=== PATIENT | female | born 1945 | race Caucasian/White ===

== ENCOUNTER 2019-11-19 12:10 | Inpatient (IN) | payer MEDICARE, OTHER ==
[~2019-11-19] VITALS: Ht 152.4 cm; Wt 59.0 kg
--- NOTE | 2019-11-19 12:40 | NUR ---
Dr Verduzco at the bedside forr DAVID.
[2019-11-19 13:16] LABS: BASOPHILS # (AUTO) 0.1 K/uL (0.0-8.0); EOSINOPHILS # (AUTO) 0.1 K/uL (0.0-0.7); EOSINOPHILS % (AUTO) 1.2 % (0.0-7.0); HEMATOCRIT 48.1 % (31.2-41.9); MEAN CORPUSCULAR HEMOGLOBIN 27.6 uug (24.7-32.8); MONOCYTES # (AUTO) 0.6 K/uL (2.0-10.0); WHITE BLOOD COUNT (AUTO) 10.6 K/uL (3.8-11.8)
[2019-11-19 13:23] LABS: CREATININE 0.7 mg/dL (0.6-1.3); POTASSIUM 4.6 mmol/L (3.5-5.1)
[2019-11-19 13:24] LABS: BASOPHILS % (AUTO) 0.8 % (0.0-2.0); HEMOGLOBIN 16.2 g/dL (10.9-14.3); LYMPHOCYTES # (AUTO) 2.4 K/uL (20.0-40.0); LYMPHOCYTES % (AUTO) 22.3 % (20.5-51.5); MEAN CORPUSCULAR HGB CONC 34 g/dL (32.3-35.6); MONOCYTES % (AUTO) 5.7 % (0.0-11.0); NEUTROPHILS # (AUTO) 7.4 K/uL (1.8-8.9); PLATELET COUNT (AUTO) 253 K/uL (179-408); RED BLOOD CELL COUNT(AUTO) 5.86 MIL/uL (3.63-4.92)
[2019-11-19 13:28] LABS: BILIRUBIN,DIRECT 0.1 mg/dL (0.0-0.2); BILIRUBIN,TOTAL 0.5 mg/dL (0.2-1.0); TOTAL PROTEIN, SERUM 8.8 g/dL (6.4-8.2)
[2019-11-19 13:59] LABS: BAND % (MANUAL) 5 % (0-10); BASOPHILS % (MANUAL) 1 % (0-2); LYMPHOCYTES % (MANUAL) 25 % (20-40); METAMYELOCYTES % 2 % (0-1); MONOCYTES % (MANUAL) 6 % (2-10); NEUTROPHILS % (MANUAL) 61 % (42-75)
--- NOTE | 2019-11-19 14:55 | NUR ---
RECEIVED PATIENT 74 YEARS OLD FEMALE BY PABLITO TO ROOM 308 PLACED INTO BED FIXED AND MADE COMFORTABLE PATIENT IS AWAKE NON VERBAL UNABLE TO MAKE NEEDS KNOWN LEFT ARM IS CONTRACTED WITH MULTIPLE RED AREAS ON NECK ETC GT ON LEFT ABDOMINAL AREA CALL PLACED TO THE NEPHROLOGY GROUP MESSAGE LEFT WITH BRIE STATED THAT DR CAIN IS CLERK ANALYST AND WILL BE CALLING ME BACK FOR ORDERS.
[2019-11-19] MEDS ORDERED: DEXTROSE 50% 50 ML DISP.SYRIN IV PRN (16:00)
[2019-11-19 16:12] VITALS: BP 157/67
[2019-11-19] MEDS: BLOOD SUGAR DIAGNOSTIC 1 EACH STRIP VI SCH ×2 (17:09→23:15)
[2019-11-19] MEDS: IV D5/ 0.9% NACL 1,000 ML IV PRN (17:40)
--- NOTE | 2019-11-19 18:00 | NUR ---
SPOKE WITH DR SANCHEZ AND ORDERS VERIFIED.
--- NOTE | 2019-11-19 18:29 | NUR ---
VERY CONTRACTED LEFT VERY STIFF AND PULLING AWAY AND RESISTING CARE TURNED AND REPOSITINED MADE COMFORTABLE
--- NOTE | 2019-11-19 19:35 | NUR ---
PATIENT ALERT BUT NON VERBAL, NO S/S OF SOB NO S/S OF CHEST PAIN. KEPT CLEAN AND DRY, TX DONE ON MULTIPLE REDNESS OR RASHES, CONT TO MONITOR.
[2019-11-19] MEDS: SIMVASTATIN 20 MG TABLET PO SCH (20:00)
[2019-11-19] MEDS: INSULIN GLARGINE,HUM 300 UNITS/3 ML CARTRIDGE SQ SCH (20:51)
[2019-11-19] MEDS: CLOTRIMAZOLE 1% CREAM 30 GM TUBE TOP SCH (21:00)
[2019-11-19] MEDS: Z GUARD REMEDY PASTE 57 GM TUBE TOP SCH (21:01)
[2019-11-19] MEDS: INSULIN REGULAR, HUMAN 300 UNIT/3 ML VIAL SQ PRN (23:18)
[2019-11-20] MEDS: BLOOD SUGAR DIAGNOSTIC 1 EACH STRIP VI SCH ×4 (05:33→21:37)
[2019-11-20] MEDS: LEVOTHYROXINE SODIUM 50 MCG TABLET PO SCH (06:04)
--- NOTE | 2019-11-20 06:36 | NUR ---
PATIENT ALERT BUT WITH CONFUSION DUE TO HEALTH CONDITION. PATIENT REMAINS NPO EXCEPT WITH MEDICATIONS. PATIENT HAS NO S/S OF HYPO/HYPERGLYCEMIA NOTED AT THIS TIME. KEPT CLEAN DRY AND COMFORTABLE, TX DONE ON MULTIPLE RASHES/REDNESS, TOLERATE WELL. CONT TO MONITOR.
[2019-11-20] MEDS: IV D5/ 0.9% NACL 1,000 ML IV PRN ×2 (06:48→11:46)
[2019-11-20 07:01] LABS: BASOPHILS # (AUTO) 0.1 K/uL (0.0-8.0); BASOPHILS % (AUTO) 0.8 % (0.0-2.0); EOSINOPHILS # (AUTO) 0.2 K/uL (0.0-0.7); LYMPHOCYTES # (AUTO) 1.5 K/uL (20.0-40.0); LYMPHOCYTES % (AUTO) 19.1 % (20.5-51.5); MEAN CORPUSCULAR HEMOGLOBIN 27.1 uug (24.7-32.8); MEAN CORPUSCULAR HGB CONC 33 g/dL (32.3-35.6); MEAN CORPUSCULAR VOLUME 81.3 fL (75.5-95.3); MONOCYTES # (AUTO) 0.5 K/uL (2.0-10.0); MONOCYTES % (AUTO) 5.8 % (0.0-11.0); NEUTROPHILS # (AUTO) 5.6 K/uL (1.8-8.9); NEUTROPHILS % (AUTO) 72.3 % (38.5-71.5); PLATELET COUNT (AUTO) 221 K/uL (179-408); RED BLOOD CELL COUNT(AUTO) 4.91 MIL/uL (3.63-4.92)
[2019-11-20 07:10] LABS: HEMOGLOBIN 13.3 g/dL (10.9-14.3); WHITE BLOOD COUNT (AUTO) 7.8 K/uL (3.8-11.8)
--- NOTE | 2019-11-20 07:15 | NUR ---
AWAKE OPENS EYES APHASIC TOTALLY DEPENDENT FOR ALL ADL ALL NEEDS ANTICIPATED AND SATISFIED TURNED AND REPOSITIONED FOR COMFORT ON ROOM AIR WITH NO SOB AT THIS TIME REMAIN ON NPO EXCEPT MEDS GT INTACT NOT IN USE AT THIS TIME LEFT UPPER EXT CONTRACTED AND STIFF HEELS FLOATED IVF IN PROGRESS ORDERED MADE COMFORTABLE WILL CONTINUE TO OBSERVE.
[2019-11-20 07:22] LABS: ALKALINE PHOSPHATASE 46 U/L (50-136); ASPARTATE AMINOTRANSFERASE 14 U/L (15-37); BILIRUBIN,DIRECT 0.1 mg/dL (0.0-0.2); BILIRUBIN,TOTAL 0.5 mg/dL (0.2-1.0); CARBON DIOXIDE 27 mmol/L (21-32); CHLORIDE 107 mmol/L (98-107); CREATININE 0.6 mg/dL (0.6-1.3); GLUCOSE 144 mg/dL (74-106); POTASSIUM 3.6 mmol/L (3.5-5.1); TOTAL PROTEIN, SERUM 6.8 g/dL (6.4-8.2); UREA NITROGEN, BLOOD 9 mg/dL (7-18)
[2019-11-20 07:32] LABS: ALANINE AMINOTRANSFERASE 7 U/L (14-59)
[2019-11-20] MEDS: MULTIVITAMINS,THERAPEUTIC TABLET PO SCH (08:14)
[2019-11-20] MEDS: ASCORBIC ACID 250 MG TABLET PO SCH ×2 (08:14→16:40)
[2019-11-20] MEDS: MEMANTINE HCL 5 MG TABLET PO SCH ×2 (08:14→16:40)
[2019-11-20] MEDS: LISINOPRIL 20 MG TABLET PO SCH (08:17)
[2019-11-20] MEDS: AMLODIPINE 5 MG TABLET PO SCH (08:17)
[2019-11-20] MEDS: OXCARBAZEPINE 150 MG TABLET PO SCH (08:20)
[2019-11-20] MEDS: Z GUARD REMEDY PASTE 57 GM TUBE TOP SCH ×2 (08:21→21:44)
[2019-11-20] MEDS: CLOTRIMAZOLE 1% CREAM 30 GM TUBE TOP SCH ×2 (08:21→21:44)
--- NOTE | 2019-11-20 10:30 | NUR ---
DR ACOSTA HERE TO SEE PATIENT STATED WILL CALL GI TO SEE PATIENT.
--- NOTE | 2019-11-20 11:13 | NUR ---
CALL RECEIVED FROM DR CHOI BUT DR ACOSTA IS STILL HERE SO THEY BOTH TALKED AND DR ACOSTA TOLD ME THAT DR CHOI WILL DE HERE TODAY TO SEE PATIENT FOR GI CONSULT.
[2019-11-20 11:30] VITALS: BP 140/69
[2019-11-20] MEDS: INSULIN REGULAR, HUMAN 300 UNIT/3 ML VIAL SQ PRN ×3 (11:31→21:39)
--- NOTE | 2019-11-20 12:30 | NUR ---
DR RICKETTS HERE AND STATED TO WAIT TO FEED PATIENT AND IF PATIENT TOLERATES THE ORAL FEEDINGS WITH ENOUGH INTAKE THEN DR CHOI CAN REMOVE THE GT
--- NOTE | 2019-11-20 12:50 | NUR ---
DR CHOI HERE AND STATED THAT HE WILL REMOVE THE GT SO I TOLD HIM THAT DR RICKETTS WANTED TO WAIT UNTIL PATIENT HAS ENOUGH ORAL INTAKE BEFORE REMOVING THE TUBE SO DR CHOI STATED THAT WE SHOULD THEN REMOVE THE TUBE BY DEFLATING THE BALLOON AND PULLING OUT THE GT AND APPLY DRY DRESSING.
[2019-11-20 15:41] VITALS: BP 124/69
[2019-11-20] MEDS ORDERED: DEXTROSE 50% 50 ML DISP.SYRIN IV PRN (16:45)
--- NOTE | 2019-11-20 16:50 | NUR ---
NOTED PATIENT WITH EMESIS ON HER GOWN AND BED CONSISTING OF PARTLY UNDIGESTED FOOD PARTICLES CLEANSED AND MADE COMFORTABLE PATIENT HAS NO ORDER FOR ANTIEMETIC WILL CALL THE DOCTOR.
--- NOTE | 2019-11-20 17:00 | NUR ---
PATIENT HAS NO ORDER FOR ANTIEMETIC CALLED THE NEPHROLOGY GROUP SPOKE WITH JAMIE STATED DR CAIN IS FISH CUTTER AND SHE WILL SEND HIM A MESSAGE.
[2019-11-20] MEDS ORDERED: ONDANSETRON 4 MG/2 ML VIAL IV PRN (17:45)
--- NOTE | 2019-11-20 17:47 | NUR ---
FOLLOW UP CALL TO DR CAIN RE EMESIS AND GT REMOVAL PER DR CHOI STATED IT WAS OKAY TO REMOVE THE GT DESPITE THE EMESIS AND TO ORDER ZOFRA NEEDED AND NOTED.
--- NOTE | 2019-11-20 17:55 | NUR ---
PATIENT MEDICATED WITH ZOFRAN ORDERED
--- NOTE | 2019-11-20 17:56 | NUR ---
SPECIALTY MATTRASS APPLIED TO HER BED ORDERED FOR COMFORT AND DECUBITUS MANAGEMENT ORDERED.
--- NOTE | 2019-11-20 18:47 | NUR ---
RESTING NO FUTHER EMESIS AT THIS TIME ATTEMPTED TO REMOVE GT BUT WAS UNABLE TO ASPIRATE WATER FROM THE BALLOON PORT GT DIFFICULT TO PULL OUT WILL ENDORSE TO NOTIFY DR CHOI AND DR CAIN IN AM.
--- NOTE | 2019-11-20 19:00 | NUR ---
PATIENT ALERT BUT WITH CONFUSION, NO SOB NO CHEST PAIN. PATIENT HAS NO S/S OF PAIN NOR DISCOMFORT, KEPT CLEAN AND DRY.CONT TO MONITOR.
[2019-11-20 20:07] VITALS: BP 111/48
[2019-11-20] MEDS: SIMVASTATIN 20 MG TABLET PO SCH (21:23)
[2019-11-20] MEDS: INSULIN GLARGINE,HUM 300 UNITS/3 ML CARTRIDGE SQ SCH (21:38)
--- NOTE | 2019-11-20 21:59 | NUR ---
KRYS HERNANDEZ WAS ON THE PHONE AND NOTIFY MD THAT PATIENT STILL HAS THE GT. NOTIFY MD THAT AM RN DEPLATED THE WATER BALLOON AND TRIED TO REMOVE THE GT, BUT GT WONT CAME OUT, SO PATIENT STILL HAS GT.
[2019-11-21] MEDS: IV D5/ 0.9% NACL 1,000 ML IV PRN (02:38)
[2019-11-21] MEDS: BLOOD SUGAR DIAGNOSTIC 1 EACH STRIP VI SCH ×4 (05:36→21:02)
[2019-11-21] MEDS: LEVOTHYROXINE SODIUM 50 MCG TABLET PO SCH (06:02)
[2019-11-21 06:14] VITALS: BP 102/55
--- NOTE | 2019-11-21 06:35 | NUR ---
PATIENT ALERT BUT WITH CONFUSION, NO SOB NO CHEST PAIN. PATIENT HAS NO S/S OF PAIN AT THIS TIME. TX CONTINUE ON MULTIPLE AREAS OF RASHES, GT STILL PRESENT. PATIENT HAS NO S/S OF ABDOMINAL PAIN AT THIS TIME. CONT TO MONITOR.
[2019-11-21] MEDS: AMLODIPINE 5 MG TABLET PO SCH (09:07)
[2019-11-21] MEDS: LISINOPRIL 20 MG TABLET PO SCH (09:07)
[2019-11-21] MEDS: MEMANTINE HCL 5 MG TABLET PO SCH ×2 (09:08→17:31)
[2019-11-21] MEDS: ASCORBIC ACID 250 MG TABLET PO SCH ×2 (09:08→17:31)
[2019-11-21] MEDS: INSULIN REGULAR, HUMAN 300 UNIT/3 ML VIAL SQ PRN ×4 (09:08→21:09)
[2019-11-21] MEDS: MULTIVITAMINS,THERAPEUTIC TABLET PO SCH (09:08)
[2019-11-21] MEDS: Z GUARD REMEDY PASTE 57 GM TUBE TOP SCH ×2 (09:09→21:05)
[2019-11-21] MEDS: OXCARBAZEPINE 150 MG TABLET PO SCH (09:09)
[2019-11-21] MEDS: CLOTRIMAZOLE 1% CREAM 30 GM TUBE TOP SCH ×2 (09:10→21:05)
[2019-11-21 11:07] VITALS: BP 132/68
[2019-11-21 15:08] VITALS: BP 160/86
--- NOTE | 2019-11-21 18:44 | NUR ---
PATIENT ALERT AND COOPERATIVE WITH NO SOB, NO S/S OF PAIN AT THIS TIME. GTUBE STILL PRESENT. PATIENT HAS NO S/S OF ABDOMINAL PAIN AT THIS TIME. PATIENT WILL BE NPO AFTER MIDNIGHT AND GTUBE REMOVAL IS SCHEDULE FOR TOMORROW, CONSENT SIGNED.
--- NOTE | 2019-11-21 20:00 | NUR ---
Patient received into care, laying in bed sleeping, resting comfortably. Patient is alert/oriented x1 and has no signs/symptoms of acute distress or discomfort noted/observed by nurse. Safety, fall, and aspiration precautions are in place. Call light and personal items are within reach. Will continue to monitor and assess.
[2019-11-21 20:41] VITALS: BP 112/64
[2019-11-21] MEDS: SIMVASTATIN 20 MG TABLET PO SCH (21:04)
[2019-11-21] MEDS: INSULIN GLARGINE,HUM 300 UNITS/3 ML CARTRIDGE SQ SCH (21:10)
[2019-11-22] MEDS: IV D5/ 0.9% NACL 1,000 ML IV PRN (04:09)
--- NOTE | 2019-11-22 06:00 | NUR ---
Patient slept comfortably intermittently throughout night with no signs/symptoms of pain or acute distress noted/observed by nurse. All prescribed medications were provided as ordered and tolerated well, with no adverse side effects noted/observed by nurse. All patient needs were addressed promptly and patient is warm, dry, and comfortable. Patient has remained NPO since 12mn due to pending scheduled surgery to remove gastrostomy tube. Safety, aspiration, and fall precaution measures remain in place. Personal items and call light remain within reach.
[2019-11-22] MEDS: LEVOTHYROXINE SODIUM 50 MCG TABLET PO SCH (06:07)
[2019-11-22] MEDS: BLOOD SUGAR DIAGNOSTIC 1 EACH STRIP VI SCH ×3 (06:33→17:54)
[2019-11-22 06:48] VITALS: BP 161/63
[2019-11-22 06:55] LABS: BASOPHILS # (AUTO) 0.1 K/uL (0.0-8.0); BASOPHILS % (AUTO) 0.7 % (0.0-2.0); EOSINOPHILS # (AUTO) 0.2 K/uL (0.0-0.7); HEMATOCRIT 39.8 % (31.2-41.9); HEMOGLOBIN 13.4 g/dL (10.9-14.3); LYMPHOCYTES # (AUTO) 1.6 K/uL (20.0-40.0); LYMPHOCYTES % (AUTO) 18.6 % (20.5-51.5); MEAN CORPUSCULAR HEMOGLOBIN 27.4 uug (24.7-32.8); MEAN CORPUSCULAR HGB CONC 34 g/dL (32.3-35.6); MEAN CORPUSCULAR VOLUME 81.4 fL (75.5-95.3); MONOCYTES # (AUTO) 0.6 K/uL (2.0-10.0); MONOCYTES % (AUTO) 6.4 % (0.0-11.0); NEUTROPHILS # (AUTO) 6.3 K/uL (1.8-8.9); NEUTROPHILS % (AUTO) 72.3 % (38.5-71.5); PLATELET COUNT (AUTO) 195 K/uL (179-408); RED BLOOD CELL COUNT(AUTO) 4.89 MIL/uL (3.63-4.92); WHITE BLOOD COUNT (AUTO) 8.7 K/uL (3.8-11.8)
[2019-11-22 07:16] LABS: CREATININE 0.6 mg/dL (0.6-1.3); MAGNESIUM 1.4 mg/dL (1.8-2.4); POTASSIUM 3.6 mmol/L (3.5-5.1)
[2019-11-22] MEDS ORDERED: FENTANYL CITRATE 100 MCG/2 ML AMPUL ONE (07:40)
[2019-11-22] MEDS: MEMANTINE HCL 5 MG TABLET PO SCH ×2 (08:49→17:55)
[2019-11-22] MEDS: OXCARBAZEPINE 150 MG TABLET PO SCH (08:50)
[2019-11-22] MEDS: ASCORBIC ACID 250 MG TABLET PO SCH ×2 (08:50→17:55)
[2019-11-22] MEDS: MULTIVITAMINS,THERAPEUTIC TABLET PO SCH (08:50)
[2019-11-22] MEDS: AMLODIPINE 5 MG TABLET PO SCH (08:51)
[2019-11-22] MEDS: LISINOPRIL 20 MG TABLET PO SCH (08:59)
[2019-11-22] MEDS: CLOTRIMAZOLE 1% CREAM 30 GM TUBE TOP SCH (09:00)
[2019-11-22] MEDS: Z GUARD REMEDY PASTE 57 GM TUBE TOP SCH (09:00)
--- NOTE | 2019-11-22 09:11 | NUR ---
Received pt. in bed on KRISHNA for skin mgt. Pt non-verbal but responsive to tactile stimuli. NPO since midnight per NSG report. RH PIV leaking and infiltrated, will D/C. Noted G-tube, currently not being used. No new skin condition with generalized rashes. Safety measures in place. Call light and all frequently used items in place. Will continue to monitor accordingly. Addendum: 11/22/19 at 0930 by ALEXANDER VELAZQUEZ RN Pt. left unit for schedule G-tube removal @ 0925 in stable condition. Addendum: 11/22/19 at 1431 by ALEXANDER VELAZQUEZ RN Pt returned to unit at around 1115 in stable condition. Remain non-verbal. New PIV started on RH 24G x2 attempts with good blood return, pt tolerated procedure well, previous IV site d/c 2/2 infiltration and leaking. Pt. s/p G-tube removal, site covered with 4x4 dressing with tegaderm. May resume all previous medications per Dr. Carroll. Hold oral feeding until peg closes. Addendum: 11/22/19 at 1444 by ALEXANDER VELAZQUEZ RN Correction of charting: IV site on RW
[2019-11-22 11:06] VITALS: BP 156/69
[2019-11-22] MEDS: MAGNESIUM SULFATE/D5W 100 ML IV SCH ×4 (11:58→15:33)
[2019-11-22] MEDS: INSULIN REGULAR, HUMAN 300 UNIT/3 ML VIAL SQ PRN ×2 (12:06→17:57)
[2019-11-22 15:04] VITALS: BP 158/65
--- NOTE | 2019-11-22 18:44 | NUR ---
EOS: EOS: All due medications given as ordered. Skin care rendered. Previous G-tube site covered with 4x4 gauze with tegarderm. Per Dr. Carroll hold all oral feeding until Peg closes (NPO). May resume all previous medication. Pt. received 4g of Mag sulfate for M.4, tolerated well. Dr. Lombardo deemed pt. stable for discharge back to [facility]. Per CM, pt accepted back to previous facility (Room 1025 Bed B) and with hospital transportation for medicinal plant picker @ 2029. Pt. skin re-assessed, photos taken and placed in pt. chart. Pt. unable to sign discharge papers, 2 RN signed d/c papers. Called [facility] [phone] [phone] and unable to reach staff. Kept pt. clean and dry. Safety measures in place. Call light and all frequently used items within pt. reach. Will endorse to oncoming shift accordingly. Addendum: 11/22/19 at 1914 by ALEXANDER VELAZQUEZ RN Spoke with Louis Villela (Son) [phone] informed of pt. planned discharge to [facility]. Family member amenable.
[2019-11-22 20:12] VITALS: BP 178/64
[2019-11-22] MEDS ORDERED: CEFAZOLIN 1 G VIAL IM ONE (20:58)
[2019-11-22] MEDS ORDERED: PROPOFOL 200 MG/20 ML BOTTLE IV ONE (20:58)
[2019-11-22] MEDS ORDERED: IV NORMAL SALINE 1000 ML BAG IV ONE (20:58)
[2019-11-22] MEDS ORDERED: IRR STERIL WATER FOR IRR 1000 ML BOTTLE IR ONE (20:58)
== END 2019-11-22 20:59 | DRG 393 ==
LOC: ER 12:10 → MEDSURG3 14:35
PROVIDERS: ADMIT Internal Medicine Nephrology; ATTEND Internal Medicine Nephrology
PROC: 0DP68UZ Removal of Feeding Device from Stomach, Via Natural or Artificial Opening Endoscopic (ICD-10-PCS; principal; 2019-11-22)
DX: Z43.1 Encounter for attention to gastrostomy (principal); G92 Toxic encephalopathy; R13.10 Dysphagia, unspecified; E03.9 Hypothyroidism, unspecified; E78.5 Hyperlipidemia, unspecified; Z79.890 Hormone replacement therapy; F03.90 Unspecified dementia, unspecified severity, without behavioral disturbance, psychotic disturbance, mood disturbance, and anxiety; Z79.4 Long term (current) use of insulin; E11.9 Type 2 diabetes mellitus without complications; I10 Essential (primary) hypertension; I25.10 Atherosclerotic heart disease of native coronary artery without angina pectoris; Z66 Do not resuscitate; F32.9 Major depressive disorder, single episode, unspecified; F41.9 Anxiety disorder, unspecified
CPT/HCPCS: 36415; 70030-TC; 83690; 83735; 84100; 85025; 93005; A4217; A4663; G0378; J0690; J1815; J2405; J3010; J3475; J3490; J7030; J7042

== ENCOUNTER 2020-11-14 13:27 | Inpatient (IN) | payer MEDICARE, OTHER ==
[~2020-11-14] VITALS: Ht 152.4 cm; Wt 59.0 kg
[~2020-11-14 13:27] MED LIST: AMLO5TAB4 PO; ASCO-495 PO; INSU100V7 SQ; LEVO50TA8 PO; LISI20TA30 PO; MEMA5TAB PO; MULT-594 PO; OXCA150T5 PO; SIMV20TA2 PO
[2020-11-14] MEDS ORDERED: IV D5/ 0.9% NACL 1,000 ML IV ONE (14:00)
[2020-11-14 14:46] LABS: BASOPHILS % (AUTO) 0.4 % (0.0-2.0); EOSINOPHILS # (AUTO) 0.1 K/uL (0.0-0.7); EOSINOPHILS % (AUTO) 1.3 % (0.0-7.0); HEMOGLOBIN 12.5 g/dL (10.9-14.3); LYMPHOCYTES # (AUTO) 2.5 K/uL (20.0-40.0); LYMPHOCYTES % (AUTO) 23.4 % (20.5-51.5); MEAN CORPUSCULAR HEMOGLOBIN 27.2 uug (24.7-32.8); MEAN CORPUSCULAR HGB CONC 31 g/dL (32.3-35.6); MEAN CORPUSCULAR VOLUME 87.6 fL (75.5-95.3); MONOCYTES # (AUTO) 0.6 K/uL (2.0-10.0); MONOCYTES % (AUTO) 5.2 % (0.0-11.0); NEUTROPHILS # (AUTO) 7.5 K/uL (1.8-8.9); NEUTROPHILS % (AUTO) 69.7 % (38.5-71.5); PLATELET COUNT (AUTO) 122 K/uL (179-408); RED BLOOD CELL COUNT(AUTO) 4.57 MIL/uL (3.63-4.92); WHITE BLOOD COUNT (AUTO) 10.7 K/uL (3.8-11.8)
[2020-11-14 14:56] LABS: *BILIRUBIN,URIN 1+ (NEGATIVE); *BLOOD, URINE 3+ (NEGATIVE); *CLARITY,URINE SLIGHTLY CLOUDY (CLEAR); *COLOR,URINE YELLOW (YELLOW); *KETONES,URINE NEGATIVE (NEGATIVE); LEUKOCYTE ESTERASE ,URINE 1+ (NEGATIVE); NITRITE, URINE NEGATIVE (NEGATIVE); UGLUCOSE NEGATIVE (NEGATIVE)
[2020-11-14 15:00] LABS: BACTERIA,URINE NONE SEEN /HPF (NONE SEEN)
[2020-11-14 15:04] LABS: BILIRUBIN,TOTAL 0.3 mg/dL (0.2-1.0); CREATININE 1.2 mg/dL (0.6-1.3); POTASSIUM 4.4 mmol/L (3.5-5.1); TOTAL PROTEIN, SERUM 5.8 g/dL (6.4-8.2)
[2020-11-14] MEDS ORDERED: NOVOLOG INSULIN SQ (15:28)
[2020-11-14] MEDS ORDERED: ACET325C7 PO (15:28)
[2020-11-14] MEDS ORDERED: BISA10SU61 RC (15:28)
[2020-11-14] MEDS ORDERED: METF-442 PO (15:28)
[2020-11-14] MEDS ORDERED: SENN-261 PO (15:28)
[2020-11-14] MEDS ORDERED: IV D5W 1000ML 1,000 ML IV ONE (15:30)
--- NOTE | 2020-11-14 15:43 | NUR ---
Dr. Franz talked to Dr. Balderrama for admitting the pt.
[2020-11-14] MEDS ORDERED: PIPERACILLIN SODIUM/TAZOBACTAM 3.375 G in IV DEXTROSE 5% 50 ML IV ONE (15:45)
[2020-11-14] MEDS ORDERED: PIPERACILLIN/TAZOBACTAM/D5W 50 ML IV ONE (15:50)
--- NOTE | 2020-11-14 17:38 | NUR ---
PT TRANSFERED TO FLOOR IN STABLE CONDITION. PT REMAINED CALM, WITH NO SIGN OF DISTRESS THE WHOLE ER STAY.
[2020-11-14] MEDS ORDERED: HYDROCODONE/APAP 5-325MG TABLET PO PRN (18:45)
[2020-11-14] MEDS ORDERED: ONDANSETRON 4 MG/2 ML VIAL IV PRN (18:45)
[2020-11-14] MEDS ORDERED: ACETAMINOPHEN 325 MG TABLET PO PRN (18:45)
[2020-11-14] MEDS ORDERED: Z GUARD REMEDY PASTE 57 GM TUBE TOP PRN (18:45)
[2020-11-14] MEDS ORDERED: MAGNESIUM HYDROXIDE 30 ML LIQUID UDC PO PRN (18:45)
[2020-11-14] MEDS: ENOXAPARIN SODIUM 40 MG/0.4 ML DISP.SYRIN SQ SCH (20:37)
[2020-11-14] MEDS: IV D5W 1000ML 1,000 ML IV PRN (20:37)
[2020-11-14 20:39] VITALS: BP 109/55
[2020-11-14] MEDS: SIMVASTATIN 10 MG TABLET PO SCH (20:40)
--- NOTE | 2020-11-14 20:42 | NUR ---
CUSTOM HARVESTER Ke informed about IVF x1 d5W; ordered to change to D5Wat 125/hr continuously; pt failed bedside swallow test hence PO meds unable to take.
[2020-11-14] MEDS ORDERED: METFORMIN HCL 500 MG TABLET PO SCH (21:00)
[2020-11-14] MEDS ORDERED: DEXTROSE 50% 50 ML DISP.SYRIN IV PRN (23:15)
[2020-11-15] MEDS ORDERED: VANCOMYCIN IV 1,000 MG in IV DEXTROSE 5% 250 ML IV ONE (00:30)
[2020-11-15] MEDS: INSULIN REGULAR, HUMAN 300 UNIT/3 ML VIAL SQ PRN ×4 (00:40→17:39)
[2020-11-15] MEDS: BLOOD SUGAR DIAGNOSTIC 1 EACH STRIP VI SCH ×5 (00:41→23:12)
[2020-11-15] MEDS ORDERED: PIPERACILLIN SODIUM/TAZOBACTAM 3.375 G in IV DEXTROSE 5% 50 ML IV ONE (00:45)
[2020-11-15] MEDS ORDERED: VANCOMYCIN IV 200 ML ONE (00:55)
[2020-11-15] MEDS ORDERED: PIPERACILLIN/TAZOBACTAM/D5W 50 ML IV ONE (00:55)
[2020-11-15 04:00] VITALS: BP 121/68
--- NOTE | 2020-11-15 06:33 | NUR ---
pt rested well in between care; repositioned q2h; safety maintained; antibiotics given per Dr Balderrama; oral care done;
[2020-11-15 07:23] LABS: MAGNESIUM 1.5 mg/dL (1.8-2.4); PHOSPHOROUS 2.9 mg/dL (2.5-4.9)
--- NOTE | 2020-11-15 08:00 | NUR ---
Received in bed sleep but arousable to verbal and tactile stimuli. No facial grimacing noted. Iv on left wrist intact and patent. On 3Lpm via nc tolerated, saturation 96%. No sob noted. Kept comfortable. Will continue to monitor.
[2020-11-15 08:13] LABS: BASOPHILS # (AUTO) 0.1 K/uL (0.0-8.0); EOSINOPHILS # (AUTO) 0.2 K/uL (0.0-0.7); EOSINOPHILS % (AUTO) 2.6 % (0.0-7.0); HEMATOCRIT 40.3 % (31.2-41.9); LYMPHOCYTES # (AUTO) 2.3 K/uL (20.0-40.0); LYMPHOCYTES % (AUTO) 27.9 % (20.5-51.5); MEAN CORPUSCULAR HEMOGLOBIN 27.7 uug (24.7-32.8); MEAN CORPUSCULAR HGB CONC 32 g/dL (32.3-35.6); MEAN CORPUSCULAR VOLUME 85.9 fL (75.5-95.3); MONOCYTES # (AUTO) 0.4 K/uL (2.0-10.0); MONOCYTES % (AUTO) 4.3 % (0.0-11.0); NEUTROPHILS # (AUTO) 5.3 K/uL (1.8-8.9); NEUTROPHILS % (AUTO) 64.2 % (38.5-71.5); PLATELET COUNT (AUTO) 100 K/uL (179-408); RED BLOOD CELL COUNT(AUTO) 4.69 MIL/uL (3.63-4.92); WHITE BLOOD COUNT (AUTO) 8.2 K/uL (3.8-11.8)
[2020-11-15 08:15] VITALS: BP 124/48
[2020-11-15] MEDS: PIPERACILLIN SODIUM/TAZOBACTAM 3.375 G in IV DEXTROSE 5% 50 ML IV SCH ×4 (08:17→23:11)
[2020-11-15] MEDS: IV D5W 1000ML 1,000 ML IV PRN ×2 (08:18→19:41)
[2020-11-15] MEDS ORDERED: LISINOPRIL 20 MG TABLET PO SCH (09:00)
[2020-11-15] MEDS: LEVOTHYROXINE SODIUM 50 MCG TABLET PO SCH (09:00)
[2020-11-15] MEDS: AMLODIPINE 5 MG TABLET PO SCH (09:00)
[2020-11-15] MEDS: MEMANTINE HCL 5 MG TABLET PO SCH ×2 (09:00→17:00)
[2020-11-15] MEDS: MAGNESIUM SULFATE/D5W 100 ML IV SCH ×2 (10:45→12:16)
--- NOTE | 2020-11-15 15:00 | NUR ---
Dr.Ghalomi AWAD said he's able to do egd with peg tube insertion on Tuesday 12no. Spoke to patient's son Louis Villela and obtained phone consent verified by 2 RNs. Son was appreciative of the update. Patient also made aware. Will continue to monitor.
[2020-11-15 16:05] VITALS: BP 132/96
--- NOTE | 2020-11-15 19:27 | NUR ---
Patient awake but non verbal. No respiratory distress noted. Needs attended. No acute distress.
[2020-11-15] MEDS: VANCOMYCIN IV 1,000 MG in IV DEXTROSE 5% 250 ML IV SCH (19:43)
[2020-11-15] MEDS: SIMVASTATIN 10 MG TABLET PO SCH (20:54)
[2020-11-15 20:57] VITALS: BP 142/65
[2020-11-15] MEDS: ENOXAPARIN SODIUM 40 MG/0.4 ML DISP.SYRIN SQ SCH (21:02)
[2020-11-16 00:24] VITALS: BP 139/58
[2020-11-16 04:32] VITALS: BP 122/57
[2020-11-16] MEDS: PIPERACILLIN SODIUM/TAZOBACTAM 3.375 G in IV DEXTROSE 5% 50 ML IV SCH ×3 (06:01→18:16)
[2020-11-16] MEDS: BLOOD SUGAR DIAGNOSTIC 1 EACH STRIP VI SCH ×3 (06:04→18:16)
[2020-11-16] MEDS: IV D5W 1000ML 1,000 ML IV PRN (06:04)
[2020-11-16] MEDS: INSULIN REGULAR, HUMAN 300 UNIT/3 ML VIAL SQ PRN ×3 (06:08→18:20)
--- NOTE | 2020-11-16 06:29 | NUR ---
Pt rested well in between care; pt pulled out his iv last night; new IV to left hand; safety maintained; able to take meds; continue to monitor; continue plan of care.
[2020-11-16 07:17] LABS: CREATININE 0.9 mg/dL (0.6-1.3); MAGNESIUM 1.8 mg/dL (1.8-2.4); POTASSIUM 3.1 mmol/L (3.5-5.1)
[2020-11-16 08:00] VITALS: BP 139/96
--- NOTE | 2020-11-16 08:01 | NUR ---
Received awake but non verbal. On 2 Lpm via nc O2 saturation 96%. No resp distress noted. IV on left hand intact and patent, Iv fluids tolerated. Kept comfortable. Call light within reach. Will continue to monitor.
[2020-11-16] MEDS: LEVOTHYROXINE SODIUM 50 MCG TABLET PO SCH (09:00)
[2020-11-16] MEDS: AMLODIPINE 5 MG TABLET PO SCH (09:00)
[2020-11-16] MEDS: MEMANTINE HCL 5 MG TABLET PO SCH ×2 (09:00→17:00)
[2020-11-16] MEDS: IV D5 1/2 NS 1000 ML 1,000 ML IV PRN (10:24)
[2020-11-16] MEDS: POTASSIUM CHLORIDE 50 ML IV SCH ×4 (10:39→14:55)
[2020-11-16] MEDS: VANCOMYCIN IV 1,000 MG in IV DEXTROSE 5% 250 ML IV SCH (16:11)
[2020-11-16 16:41] VITALS: BP 117/61
[2020-11-16] MEDS: SIMVASTATIN 10 MG TABLET PO SCH (20:53)
[2020-11-16] MEDS: ENOXAPARIN SODIUM 40 MG/0.4 ML DISP.SYRIN SQ SCH (21:19)
[2020-11-16 21:53] VITALS: BP 122/62
[2020-11-17 01:11] VITALS: BP 145/73
[2020-11-17] MEDS: PIPERACILLIN SODIUM/TAZOBACTAM 3.375 G in IV DEXTROSE 5% 50 ML IV SCH ×4 (01:11→18:30)
[2020-11-17] MEDS: BLOOD SUGAR DIAGNOSTIC 1 EACH STRIP VI SCH ×5 (01:12→23:16)
[2020-11-17] MEDS: IV D5 1/2 NS 1000 ML 1,000 ML IV PRN ×2 (01:12→11:05)
[2020-11-17] MEDS: INSULIN REGULAR, HUMAN 300 UNIT/3 ML VIAL SQ PRN ×4 (01:13→23:24)
[2020-11-17 06:13] VITALS: BP 142/72
--- NOTE | 2020-11-17 06:25 | NUR ---
Mrs Villela rested well in between care; no acute distress; repositioned q2h; incontinence care done; repositioned for comfort; safety maintained ; AM care done; blood sugar as charted with ISS;
[2020-11-17 07:27] LABS: BASOPHILS # (AUTO) 0.1 K/uL (0.0-8.0); EOSINOPHILS # (AUTO) 0.2 K/uL (0.0-0.7); EOSINOPHILS % (AUTO) 2.6 % (0.0-7.0); HEMATOCRIT 37.9 % (31.2-41.9); HEMOGLOBIN 12.8 g/dL (10.9-14.3); LYMPHOCYTES # (AUTO) 1.8 K/uL (20.0-40.0); LYMPHOCYTES % (AUTO) 25.6 % (20.5-51.5); MEAN CORPUSCULAR HEMOGLOBIN 28.3 uug (24.7-32.8); MEAN CORPUSCULAR HGB CONC 34 g/dL (32.3-35.6); MEAN CORPUSCULAR VOLUME 83.4 fL (75.5-95.3); MONOCYTES # (AUTO) 0.4 K/uL (2.0-10.0); NEUTROPHILS # (AUTO) 4.5 K/uL (1.8-8.9); NEUTROPHILS % (AUTO) 64.8 % (38.5-71.5); PLATELET COUNT (AUTO) 114 K/uL (179-408); RED BLOOD CELL COUNT(AUTO) 4.54 MIL/uL (3.63-4.92)
[2020-11-17 07:42] LABS: CREATININE 0.9 mg/dL (0.6-1.3); MAGNESIUM 1.6 mg/dL (1.8-2.4); PHOSPHOROUS 2.7 mg/dL (2.5-4.9); POTASSIUM 3.7 mmol/L (3.5-5.1)
--- NOTE | 2020-11-17 07:45 | NUR ---
Received pt in bed. In no acute distress, iv site intact and patent, on 2l NC sating well. Responds to name and tactile stimuli call light in reach and safety measures in place. will continue to monitor
[2020-11-17] MEDS: AMLODIPINE 5 MG TABLET PO SCH (08:01)
[2020-11-17] MEDS: MEMANTINE HCL 5 MG TABLET PO SCH ×2 (08:01→16:30)
[2020-11-17] MEDS: LEVOTHYROXINE SODIUM 50 MCG TABLET PO SCH (08:02)
[2020-11-17] MEDS: MAGNESIUM SULFATE/D5W 100 ML IV SCH ×2 (10:09→10:58)
[2020-11-17] MEDS ORDERED: FENTANYL CITRATE 100 MCG/2 ML AMPUL ONE (11:22)
--- NOTE | 2020-11-17 11:30 | NUR ---
Pt left for gtube placement
--- NOTE | 2020-11-17 12:44 | NUR ---
WOUND CARE CONSULT: PT OFF UNIT IN O.R. AT THIS TIME. RECOMMENDATIONS MADE FOR SKIN PROTECTION. DISCUSSED WITH NURSING STAFF. WILL SEE PT PT CONDITION PERMITS.
--- NOTE | 2020-11-17 13:25 | NUR ---
Pt returned from procedure with gtube in place and will flush and give meds in 4 hours as ordered. Feeding will start tomorrow morning
[2020-11-17] MEDS ORDERED: VANCOMYCIN IV 1,000 MG in IV DEXTROSE 5% 250 ML IV SCH (16:00)
[2020-11-17 16:44] VITALS: BP 136/66
--- NOTE | 2020-11-17 19:29 | NUR ---
EOSS Pt is left in bed comfortable post peg tube placement. pt is on 2 L NC and satting well, L wrist IV flushing well. will endorse to nurse about orders and post op orders. All needs were met and meds were given as ordered.
[2020-11-17 20:53] VITALS: BP 120/51
[2020-11-17] MEDS ORDERED: CEFEPIME HCL 1 G in IV DEXTROSE 5% 50 ML IV SCH (22:00)
[2020-11-17] MEDS: SIMVASTATIN 10 MG TABLET PO SCH (22:10)
[2020-11-17] MEDS: ENOXAPARIN SODIUM 40 MG/0.4 ML DISP.SYRIN SQ SCH (22:41)
[2020-11-17] MEDS ORDERED: CEFEPIME HCL 1 G VIAL ONE (23:03)
--- NOTE | 2020-11-18 | NUR ---
Received pt resting bed. No acute distress noted. VSS. Arousable to verbal and tactile stimuli. No SOB noted on 2L via NC @100%. FLACC scale, no facial grimace/ no pain. Repositioned for comfort. Skin care rendered. IV left wrist 22G intact, and patent, running D5 NS @ 100 ml/hr Repositioned Q2H, offloading heels with pillow. NSR on the monitor. All due medications administered crushed and through g-tube, flushed. Accucheck 136, covered per sliding scale. Antibiotics given as ordered. Needs attended too, kept comfortable. Safety measures maintained. Will continue to monitor.
[2020-11-18 00:17] VITALS: BP 143/89
[2020-11-18] MEDS: IV D5 1/2 NS 1000 ML 1,000 ML IV PRN (02:58)
[2020-11-18 06:00] VITALS: BP 122/70
[2020-11-18] MEDS: BLOOD SUGAR DIAGNOSTIC 1 EACH STRIP VI SCH ×3 (06:08→17:10)
--- NOTE | 2020-11-18 07:30 | NUR ---
Received patient awake, alert times 1. No sign of distress noted. Patient is aphasic. Patient is on 2L of oxygen NC. Patient is status post PEG placement. feeding currently at 10 cc's per hour with orders to increase 10 cc @4h as tolerated. Safety precautions are in place. Will continue to monitor.
[2020-11-18] MEDS ORDERED: CEFEPIME HCL 1 G in IV DEXTROSE 5% 50 ML IV ONE (08:00)
[2020-11-18] MEDS: MEMANTINE HCL 5 MG TABLET PO SCH ×2 (08:56→16:59)
[2020-11-18] MEDS ORDERED: GLUCERNA 1.2 1000ML LIQUID GT PRN (09:00)
[2020-11-18] MEDS: AMLODIPINE 5 MG TABLET PO SCH (09:09)
[2020-11-18 11:38] VITALS: BP 152/83
--- NOTE | 2020-11-18 12:00 | NUR ---
WOUND CARE CONSULT: PT PRESENTS WITH SACRAL AND RT BUTTOCK SCARRING, PRESENT ON ADMISSION. RECOMMENDATIONS MADE FOR SKIN PROTECTION. DISCUSSED WITH NURSING STAFF. IN AGREEMENT WITH PLAN OF CARE. Addendum: 11/18/20 at 1200 by KURT ORDAZ RN Amended: Links added.
[2020-11-18 15:41] LABS: BASOPHILS % (AUTO) 0.5 % (0.0-2.0); EOSINOPHILS # (AUTO) 0.1 K/uL (0.0-0.7); EOSINOPHILS % (AUTO) 1.9 % (0.0-7.0); HEMOGLOBIN 12.9 g/dL (10.9-14.3); LYMPHOCYTES # (AUTO) 1.2 K/uL (20.0-40.0); LYMPHOCYTES % (AUTO) 19.8 % (20.5-51.5); MEAN CORPUSCULAR HEMOGLOBIN 27.4 uug (24.7-32.8); MEAN CORPUSCULAR HGB CONC 33 g/dL (32.3-35.6); MEAN CORPUSCULAR VOLUME 82.6 fL (75.5-95.3); MONOCYTES # (AUTO) 0.3 K/uL (2.0-10.0); NEUTROPHILS # (AUTO) 4.5 K/uL (1.8-8.9); NEUTROPHILS % (AUTO) 72.8 % (38.5-71.5); PLATELET COUNT (AUTO) 133 K/uL (179-408); RED BLOOD CELL COUNT(AUTO) 4.72 MIL/uL (3.63-4.92); WHITE BLOOD COUNT (AUTO) 6.2 K/uL (3.8-11.8)
[2020-11-18 15:50] LABS: ALANINE AMINOTRANSFERASE 13 U/L (14-59); ALKALINE PHOSPHATASE 47 U/L (50-136); ASPARTATE AMINOTRANSFERASE 15 U/L (15-37); BILIRUBIN,TOTAL 0.4 mg/dL (0.2-1.0); CARBON DIOXIDE 23 mmol/L (21-32); CHLORIDE 110 mmol/L (98-107); CREATININE 0.7 mg/dL (0.6-1.3); GLUCOSE 160 mg/dL (74-106); MAGNESIUM 2.1 mg/dL (1.8-2.4); PHOSPHOROUS 2.7 mg/dL (2.5-4.9); POTASSIUM 3.2 mmol/L (3.5-5.1); TOTAL PROTEIN, SERUM 6.1 g/dL (6.4-8.2); UREA NITROGEN, BLOOD 6 mg/dL (7-18)
[2020-11-18] MEDS: CEFEPIME HCL 1 G in IV DEXTROSE 5% 50 ML IV SCH ×2 (15:59→23:22)
[2020-11-18 16:00] VITALS: BP 122/56
[2020-11-18] MEDS ORDERED: CEFEPIME HCL 1 G in IV DEXTROSE 5% 50 ML IV SCH (16:00)
--- NOTE | 2020-11-18 16:15 | NUR ---
Patient residual amount is 65 cc's. Rate is 20 cc's since 0. Currently holding feeding. Made MD aware. Will continue to monitor.
[2020-11-18] MEDS: INSULIN REGULAR, HUMAN 300 UNIT/3 ML VIAL SQ PRN (17:11)
--- NOTE | 2020-11-18 18:15 | NUR ---
Rechecked residuals, amount is 15cc's. Restarted feeding. Will continue to monitor.
--- NOTE | 2020-11-18 19:31 | NUR ---
Patient is resting in bed. No sign of distress noted. Gave all medications as ordered. Safety measures are in place. Will endorse the oncoming nurse.
[2020-11-18 20:06] VITALS: BP 170/73
[2020-11-18] MEDS: SIMVASTATIN 10 MG TABLET PO SCH (20:24)
[2020-11-18] MEDS: ENOXAPARIN SODIUM 40 MG/0.4 ML DISP.SYRIN SQ SCH (20:33)
--- NOTE | 2020-11-18 21:00 | NUR ---
Received pt resting bed. No acute distress noted. VSS. Arousable to verbal and tactile stimuli. No SOB noted on 2L via NC @100%. FLACC scale 3, administered Tylenol per nursing judgment. Repositioned for comfort. Skin care rendered. Photos of skin issue taken and placed in chart. Midline RUR intact/flushed running D5 NS @ 100 ml/hr. Repositioned Q2H, offloading heels with pillow. NSR on the monitor. All due medications administered crushed and through g-tube, flushed. Risidual of 60cc noted, will continue to monitor feeding toleration. Needs attended too, kept comfortable. Safety measures maintained. Will continue to monitor.
[2020-11-19 00:24] VITALS: BP 161/72
[2020-11-19] MEDS: BLOOD SUGAR DIAGNOSTIC 1 EACH STRIP VI SCH ×3 (01:11→11:57)
[2020-11-19 04:39] VITALS: BP 156/67
[2020-11-19] MEDS: CEFEPIME HCL 1 G in IV DEXTROSE 5% 50 ML IV SCH (06:15)
[2020-11-19] MEDS: INSULIN REGULAR, HUMAN 300 UNIT/3 ML VIAL SQ PRN (06:23)
--- NOTE | 2020-11-19 06:50 | NUR ---
Pt slept well throughout the night. Morning accucheck 131, administered 2 units of insulin per sliding scale. Pt tolerating feeding well @ 40cc/hr, no residual noted. Flushed G-tube . Safety measures maintained. All needs attended to promptly. Will endorse to oncoming nurse accordingly.
[2020-11-19] MEDS ORDERED: LEVOTHYROXINE SODIUM 50 MCG TABLET PO SCH (07:00)
[2020-11-19 08:00] VITALS: BP 175/84
[2020-11-19] MEDS: AMLODIPINE 5 MG TABLET PO SCH (08:50)
[2020-11-19] MEDS: MEMANTINE HCL 5 MG TABLET PO SCH (08:50)
[2020-11-19] MEDS ORDERED: Glucerna 1.2 GT (10:57)
[2020-11-19 11:09] VITALS: BP 153/67
--- NOTE | 2020-11-19 13:07 | NUR ---
PATIENT SCHEDULED TO BE DISCHARGED BACK TO [facility]. AAOX1. DISCHARGE INSTRUCTIONS AND REPORT GIVEN TO KLYE GALLOWAY FROM SNF. AMBULANCE PICKUP SCHEDULED AT 1400. BELONGINGS LIST SIGNED. NO S/S OF DISTRESS OR SOB NOTED AT THIS TIME. WILL CONTINUE TO MONITOR.
[2020-11-19 13:47] VITALS: BP 111/82
--- NOTE | 2020-11-19 14:30 | NUR ---
REPORT GIVEN TO AMBULANCE PERSONNEL. IV MIDLINE REMOVED - NO S/S OF BLEEDING. ID BAND REMOVED. VSS. NO S/S OF DISTRESS NOTED.
[2020-11-19] MEDS ORDERED: PROPOFOL 200 MG/20 ML BOTTLE IV ONE (14:33)
== END 2020-11-19 14:34 | DRG 871 ==
LOC: ER 13:28 → TELE3 17:30 → MEDSURG3 11-19 07:35
PROVIDERS: ADMIT Internal Medicine; ATTEND Internal Medicine
PROC: 0DH63UZ Insertion of Feeding Device into Stomach, Percutaneous Approach (ICD-10-PCS; principal; 2020-11-17)
PROC: 3E0G76Z Introduction of Nutritional Substance into Upper GI, Via Natural or Artificial Opening (ICD-10-PCS; 2020-11-17)
DX: A41.9 Sepsis, unspecified organism (principal); N17.0 Acute kidney failure with tubular necrosis; G92 Toxic encephalopathy; E87.0 Hyperosmolality and hypernatremia; E46 Unspecified protein-calorie malnutrition; Z66 Do not resuscitate; R13.10 Dysphagia, unspecified; D69.6 Thrombocytopenia, unspecified; E03.9 Hypothyroidism, unspecified; E11.9 Type 2 diabetes mellitus without complications; E78.5 Hyperlipidemia, unspecified; E83.42 Hypomagnesemia; E86.0 Dehydration; F03.90 Unspecified dementia, unspecified severity, without behavioral disturbance, psychotic disturbance, mood disturbance, and anxiety; F39 Unspecified mood [affective] disorder; I10 Essential (primary) hypertension; Z20.822 Contact with and (suspected) exposure to COVID-19; E87.6 Hypokalemia; N13.9 Obstructive and reflux uropathy, unspecified; Z79.84 Long term (current) use of oral hypoglycemic drugs; R93.89 Abnormal findings on diagnostic imaging of other specified body structures; R31.9 Hematuria, unspecified; K31.89 Other diseases of stomach and duodenum; K44.9 Diaphragmatic hernia without obstruction or gangrene
CPT/HCPCS: 36415; 71045; 83735; 84100; 85025; 85730; 87040; 87086; 93005; A4217; A4663; G0378; J0692; J1650; J1815; J2543; J3010; J3370; J3475; J3480; J3490; J7040; J7050; J7060; J7070

== ENCOUNTER 2024-06-14 18:26 | Inpatient (IN) | payer MEDICARE, OTHER ==
[~2024-06-14] VITALS: Ht 167.6 cm; Wt 74.5 kg
[~2024-06-14 18:26] MED LIST changes: +ACET325C7 PO; -ASCO-495 PO; +BISA10SU61 RC; +Glucerna 1.2 GT; -INSU100V7 SQ; +METF-442 PO; +NOVOLOG INSULIN SQ; -OXCA150T5 PO; +SENN-261 PO
[2024-06-14] MEDS ORDERED: CEFTRIAXONE 1 G VIAL ONE (19:21)
[2024-06-14] MEDS: IV NORMAL SALINE 1000 ML BAG IV ONE (19:25)
[2024-06-14] MEDS: CEFTRIAXONE 1 G in IV DEXTROSE 5% 50 ML IV ONE (19:25)
[2024-06-14 19:27] LABS: BASOPHILS % (AUTO) 0.2 % (0.0-2.0); EOSINOPHILS # (AUTO) 0.1 K/uL (0.0-0.7); EOSINOPHILS % (AUTO) 0.4 % (0.0-7.0); HEMATOCRIT 36.3 % (31.2-41.9); HEMOGLOBIN 10.8 g/dL (10.9-14.3); MEAN CORPUSCULAR HEMOGLOBIN 26.2 uug (24.7-32.8); MEAN CORPUSCULAR HGB CONC 30 g/dL (32.3-35.6); MEAN CORPUSCULAR VOLUME 88.4 fL (75.5-95.3); NEUTROPHILS # (AUTO) 12.2 K/uL (1.8-8.9); NEUTROPHILS % (AUTO) 85.4 % (38.5-71.5); PLATELET COUNT (AUTO) 195 K/uL (179-408); RED BLOOD CELL COUNT(AUTO) 4.11 MIL/uL (3.63-4.92); RED CELL DISTRIBUTION WIDTH 19.4 % (12.3-17.7); WHITE BLOOD COUNT (AUTO) 14.3 K/uL (3.8-11.8)
[2024-06-14 19:28] LABS: DIFFERENTIAL COMMENT 1
[2024-06-14] MEDS ORDERED: CYAN-51 PO (19:28)
[2024-06-14] MEDS ORDERED: AMIN30LI27 PO (19:28)
[2024-06-14] MEDS ORDERED: IPRA3AMP23 IH (19:28)
[2024-06-14] MEDS ORDERED: ASCO-495 PO (19:28)
[2024-06-14 19:41] LABS: ABG HCO3 13.4 mmol/L (21.0-28.0); ABG PCO2 29.3 mmHg (32.0-45.0); ABG PH 7.279 (7.350-7.450); ABG PO2 63.9 mmHg (83.0-108.0); ABG SITE RIGHT FEMORAL; ABG TOTAL HEMOGLOBIN 10.7 G/dL (12.0-16.0); AaDO2 90.2 mmHg; COHb 0.2 % (0.5-1.5); MetHb 0.1 % (0.0-1.5); O2Hb 91.3 % (94.0-98.0)
[2024-06-14 19:41] LABS: ALANINE AMINOTRANSFERASE 15 U/L (14-59); ALBUMIN 2.7 g/dL (3.4-5.0); ALKALINE PHOSPHATASE 64 U/L (50-136); ASPARTATE AMINOTRANSFERASE 15 U/L (15-37); BILIRUBIN,TOTAL 0.4 mg/dL (0.2-1.0); CALCIUM 9.2 mg/dL (8.5-10.1); CARBON DIOXIDE 19 mmol/L (21-32); CHLORIDE 115 mmol/L (98-107); CREATININE 2.4 mg/dL (0.6-1.3); GLUCOSE 299 mg/dL (74-106); PHOSPHOROUS 3.5 mg/dL (2.5-4.9); POTASSIUM 5.6 mmol/L (3.5-5.1); SODIUM SERUM 149 mmol/L (136-145); TOTAL PROTEIN, SERUM 7.7 g/dL (6.4-8.2)
[2024-06-14 19:43] LABS: UREA NITROGEN, BLOOD 89 mg/dL (7-18)
[2024-06-14 19:48] LABS: LACTIC ACID 4.6 mmol/L (0.4-2.0)
[2024-06-14 20:23] LABS: *BILIRUBIN,URIN NEGATIVE (NEGATIVE); *BLOOD, URINE 3+ (NEGATIVE); *COLOR,URINE YELLOW (YELLOW); *KETONES,URINE NEGATIVE (NEGATIVE); *PROTEIN,URINE 2+ (NEGATIVE); *UROBILINOGEN,URINE 0.2 E.U./dl (NORMAL); LEUKOCYTE ESTERASE ,URINE 2+ (NEGATIVE); NITRITE, URINE NEGATIVE (NEGATIVE); PH,URINE 5.5 (5.0-8.0); UGLUCOSE NEGATIVE (NEGATIVE)
[2024-06-14 20:28] LABS: *CLARITY,URINE SLIGHTLY CLOUDY (CLEAR)
[2024-06-14 20:59] LABS: RBC,URINE 20-50 /HPF (0-3); WBC,URINE 80-100 /HPF (0-3)
[2024-06-14 21:00] LABS: BACTERIA,URINE MODERATE /HPF (NONE SEEN); SQUAMOUS EPITHELIAL CELL,UR MODERATE /HPF (NONE SEEN)
[2024-06-14] MEDS ORDERED: CEFEPIME HCL 1 G in IV DEXTROSE 5% 50 ML IV SCH (22:15)
[2024-06-14] MEDS ORDERED: DEXTROSE 50% 50 ML DISP.SYRIN IV PRN (22:15)
[2024-06-15] MEDS ORDERED: VANCOMYCIN IV 200 ML ONE (00:33)
[2024-06-15 01:11] VITALS: BP 120/70; TEMP 98.2
[2024-06-15] MEDS ORDERED: CEFEPIME HCL 1 G VIAL ONE (02:16)
[2024-06-15] MEDS: IV LACTATED RINGERS SOLUTION 1,000 ML IV SCH (02:16)
[2024-06-15] MEDS: VANCOMYCIN IV 1,000 MG in IV DEXTROSE 5% 250 ML IV ONE (02:16)
[2024-06-15] MEDS: CEFEPIME HCL 1 G in IV DEXTROSE 5% 50 ML IV SCH (02:35)
[2024-06-15] MEDS: BLOOD SUGAR DIAGNOSTIC 1 EACH STRIP VI SCH (06:09)
[2024-06-15] MEDS: INSULIN REGULAR, HUMAN 1000 UNIT/10 ML VIAL SQ PRN (06:11)
[2024-06-15] MEDS ORDERED: IV LACTATED RINGERS SOLUTION 1,000 ML IV PRN (06:52)
[2024-06-15] MEDS: LEVOTHYROXINE SODIUM 50 MCG TABLET PO SCH (07:10)
[2024-06-15 08:25] VITALS: BP 133/67; TEMP 98
[2024-06-15 08:27] LABS: CALCIUM 8.7 mg/dL (8.5-10.1); CARBON DIOXIDE 17 mmol/L (21-32); CHLORIDE 120 mmol/L (98-107); GLUCOSE 204 mg/dL (74-106); SODIUM SERUM 150 mmol/L (136-145); UREA NITROGEN, BLOOD 78 mg/dL (7-18)
[2024-06-15] MEDS: AMLODIPINE 5 MG TABLET PO SCH (08:47)
[2024-06-15] MEDS: CYANOCOBALAMIN 1,000 MCG TABLET PO SCH (08:47)
[2024-06-15] MEDS: SENNOSIDES 1 TABLET PO SCH (08:47)
[2024-06-15] MEDS: MULTIVITAMINS,THERAPEUTIC TABLET PO SCH (08:47)
[2024-06-15] MEDS: METFORMIN HCL 500 MG TABLET PO SCH (08:47)
[2024-06-15] MEDS: ASCORBIC ACID 500 MG TABLET PO SCH (08:47)
[2024-06-15] MEDS: HEPARIN SODIUM,PORCINE 5,000 UNITS/ML VIAL SQ SCH (08:49)
[2024-06-15] MEDS ORDERED: METFORMIN HCL 1000 MG PO SCH (09:00)
[2024-06-15] MEDS ORDERED: LISINOPRIL 20 MG TABLET PO SCH (09:00)
[2024-06-15] MEDS ORDERED: REMEDY ESSENTIAL ZINC PASTE 113 GM TOP PRN (09:15)
[2024-06-15] MEDS: PROTEIN SUPPLEMENT (PROSTAT) 30 ML LIQUID PO SCH (09:36)
[2024-06-15] MEDS ORDERED: SIMV10TA98 PO (10:36)
[2024-06-15] MEDS ORDERED: MEMA10TA PO (10:36)
[2024-06-15] MEDS ORDERED: ZINC50TA69 PO (10:36)
[2024-06-15] MEDS ORDERED: COLL30OI TOP (10:36)
[2024-06-15] MEDS ORDERED: PETR113P TP (10:36)
[2024-06-15] MEDS ORDERED: ACET-2154 PO (10:51)
[2024-06-15] MEDS: MEDIHONEY= THERAHONEY 1.5 OZ TUBE TOP SCH (12:29)
[2024-06-15] MEDS: NEOMY/BACITRAC/POLYMI OINT 28.35 GM TUBE TOP SCH (12:29)
[2024-06-15] MEDS: GLUCERNA 1.2 1000ML LIQUID GT PRN (12:49)
[2024-06-15] MEDS: MEMANTINE HCL 5 MG TABLET PO SCH (17:13)
[2024-06-15] MEDS: ARGININE/GLUTAMINE/CALCIUM BMB 1 EACH POWD.PACK GT SCH (17:14)
[2024-06-15] MEDS: PROTEIN SUPPLEMENT (PROSTAT) 30 ML LIQUID GT SCH (17:14)
[2024-06-15 19:47] VITALS: BP 135/46; TEMP 98.2; O2SAT 97
[2024-06-15] MEDS: SIMVASTATIN 10 MG TABLET PO SCH (21:28)
[2024-06-15] MEDS: REMEDY ESSENTIAL ZINC PASTE 113 GM TOP SCH (21:29)
[2024-06-16] MEDS: CEFEPIME HCL 1 G in IV DEXTROSE 5% 50 ML IV SCH (02:17)
[2024-06-16 04:13] VITALS: BP 139/64; TEMP 98; O2SAT 97
[2024-06-16 06:43] LABS: *BILIRUBIN,URIN NEGATIVE (NEGATIVE); *CLARITY,URINE CLEAR (CLEAR); *COLOR,URINE YELLOW (YELLOW); *KETONES,URINE NEGATIVE (NEGATIVE); *PROTEIN,URINE 1+ (NEGATIVE); *UROBILINOGEN,URINE 0.2 E.U./dl (NORMAL); LEUKOCYTE ESTERASE ,URINE 3+ (NEGATIVE); NITRITE, URINE NEGATIVE (NEGATIVE); PH,URINE 5.5 (5.0-8.0); UGLUCOSE NEGATIVE (NEGATIVE)
[2024-06-16 06:52] LABS: *BLOOD, URINE TRACE (NEGATIVE)
[2024-06-16 06:58] LABS: BACTERIA,URINE MODERATE /HPF (NONE SEEN); SQUAMOUS EPITHELIAL CELL,UR FEW /HPF (NONE SEEN); WBC,URINE 50-80 /HPF (0-3)
[2024-06-16 07:13] LABS: *CREATININE,URINE 31.1 mg/dL (30-125)
[2024-06-16] MEDS ORDERED: DEXTROSE 50% 50 ML DISP.SYRIN IV PRN (07:15)
[2024-06-16] MEDS: ZINC SULFATE 220 MG CAPSULE PO SCH (08:05)
[2024-06-16] MEDS ORDERED: Medication Not On Formulary EA (Zinc 50 MG) PO SCH (09:00)
[2024-06-16 09:11] LABS: BASOPHILS % (AUTO) 0.4 % (0.0-2.0); EOSINOPHILS # (AUTO) 0.2 K/uL (0.0-0.7); EOSINOPHILS % (AUTO) 2.8 % (0.0-7.0); HEMATOCRIT 29.5 % (31.2-41.9); HEMOGLOBIN 9.4 g/dL (10.9-14.3); LYMPHOCYTES # (AUTO) 0.9 K/uL (0.8-4.8); LYMPHOCYTES % (AUTO) 11.2 % (20.5-51.5); MEAN CORPUSCULAR HEMOGLOBIN 27.1 uug (24.7-32.8); MEAN CORPUSCULAR HGB CONC 32 g/dL (32.3-35.6); MEAN CORPUSCULAR VOLUME 84.6 fL (75.5-95.3); MONOCYTES # (AUTO) 0.6 K/uL (0.1-1.30); NEUTROPHILS # (AUTO) 6.1 K/uL (1.8-8.9); NEUTROPHILS % (AUTO) 77.6 % (38.5-71.5); PLATELET COUNT (AUTO) 164 K/uL (179-408); RED BLOOD CELL COUNT(AUTO) 3.48 MIL/uL (3.63-4.92); RED CELL DISTRIBUTION WIDTH 18.4 % (12.3-17.7); WHITE BLOOD COUNT (AUTO) 7.9 K/uL (3.8-11.8)
[2024-06-16 09:19] LABS: DIFFERENTIAL COMMENT 1
[2024-06-16 09:24] LABS: ALANINE AMINOTRANSFERASE 17 U/L (14-59); ALBUMIN 2.1 g/dL (3.4-5.0); ALKALINE PHOSPHATASE 55 U/L (50-136); ASPARTATE AMINOTRANSFERASE 7 U/L (15-37); BILIRUBIN,TOTAL 0.2 mg/dL (0.2-1.0); CALCIUM 9.1 mg/dL (8.5-10.1); CARBON DIOXIDE 19 mmol/L (21-32); CHLORIDE 119 mmol/L (98-107); CREATINE KINASE, TOTAL 29 U/L (26-192); CREATININE 1.8 mg/dL (0.6-1.3); GLUCOSE 210 mg/dL (74-106); PHOSPHOROUS 4.3 mg/dL (2.5-4.9); SODIUM SERUM 149 mmol/L (136-145); TOTAL PROTEIN, SERUM 6.5 g/dL (6.4-8.2); UREA NITROGEN, BLOOD 73 mg/dL (7-18); VANCOMYCIN,RANDOM 13.2 ug/mL (20.0-30.0)
[2024-06-16] MEDS: IV 1/2NS 1000 ML 1,000 ML IV SCH (10:50)
[2024-06-16] MEDS ORDERED: VANCOMYCIN HCL 750 MG in IV DEXTROSE 5% 250 ML IV ONE (11:00)
[2024-06-16] MEDS: VANCOMYCIN IV 1,000 MG in IV DEXTROSE 5% 250 ML IV ONE (11:11)
[2024-06-16 11:41] VITALS: BP 136/76; TEMP 97.6; O2SAT 97
[2024-06-16] MEDS: BLOOD SUGAR DIAGNOSTIC 1 EACH STRIP VI SCH (11:45)
[2024-06-16] MEDS: INSULIN REGULAR, HUMAN 1000 UNIT/10 ML VIAL SQ PRN (11:46)
[2024-06-16 15:28] VITALS: O2SAT 97
[2024-06-16 16:22] VITALS: BP 123/48; TEMP 97.9; O2SAT 98
[2024-06-16 22:30] VITALS: BP 154/58; TEMP 97.4; O2SAT 98
[2024-06-17] VITALS (7 sets, daily range): BP systolic 126–166; BP diastolic 51–77; TEMP 97.5–98.5; O2SAT 93–98
[2024-06-17 08:17] LABS: BASOPHILS % (AUTO) 0.5 % (0.0-2.0); EOSINOPHILS # (AUTO) 0.2 K/uL (0.0-0.7); EOSINOPHILS % (AUTO) 2.3 % (0.0-7.0); HEMATOCRIT 27.9 % (31.2-41.9); HEMOGLOBIN 9.1 g/dL (10.9-14.3); LYMPHOCYTES # (AUTO) 1.1 K/uL (0.8-4.8); LYMPHOCYTES % (AUTO) 16.3 % (20.5-51.5); MEAN CORPUSCULAR HEMOGLOBIN 27.4 uug (24.7-32.8); MEAN CORPUSCULAR HGB CONC 33 g/dL (32.3-35.6); MEAN CORPUSCULAR VOLUME 84.1 fL (75.5-95.3); MONOCYTES # (AUTO) 0.6 K/uL (0.1-1.30); MONOCYTES % (AUTO) 8.6 % (0.0-11.0); NEUTROPHILS # (AUTO) 4.9 K/uL (1.8-8.9); NEUTROPHILS % (AUTO) 72.3 % (38.5-71.5); PLATELET COUNT (AUTO) 189 K/uL (179-408); RED BLOOD CELL COUNT(AUTO) 3.32 MIL/uL (3.63-4.92); RED CELL DISTRIBUTION WIDTH 17.8 % (12.3-17.7); WHITE BLOOD COUNT (AUTO) 6.8 K/uL (3.8-11.8)
[2024-06-17 08:23] LABS: DIFFERENTIAL COMMENT 1
[2024-06-17 09:07] LABS: ALANINE AMINOTRANSFERASE 6 U/L (14-59); ALKALINE PHOSPHATASE 55 U/L (50-136); ASPARTATE AMINOTRANSFERASE 7 U/L (15-37); BILIRUBIN,TOTAL 0.3 mg/dL (0.2-1.0); CALCIUM 8.8 mg/dL (8.5-10.1); CARBON DIOXIDE 20 mmol/L (21-32); CHLORIDE 114 mmol/L (98-107); CREATININE 1.5 mg/dL (0.6-1.3); GLUCOSE 214 mg/dL (74-106); MAGNESIUM 2.1 mg/dL (1.8-2.4); PHOSPHOROUS 3.7 mg/dL (2.5-4.9); SODIUM SERUM 146 mmol/L (136-145); TOTAL PROTEIN, SERUM 6.3 g/dL (6.4-8.2); UREA NITROGEN, BLOOD 62 mg/dL (7-18); VANCOMYCIN,RANDOM 22.4 ug/mL (20.0-30.0)
[2024-06-17] MEDS: hydrALAZINE HCL 10 MG TABLET PO SCH (17:30)
[2024-06-18 04:45] VITALS: BP 138/78; TEMP 98.4; O2SAT 96
[2024-06-18 06:34] LABS: BASOPHILS % (AUTO) 0.2 % (0.0-2.0); EOSINOPHILS # (AUTO) 0.1 K/uL (0.0-0.7); EOSINOPHILS % (AUTO) 1.5 % (0.0-7.0); HEMATOCRIT 27.8 % (31.2-41.9); HEMOGLOBIN 8.9 g/dL (10.9-14.3); LYMPHOCYTES # (AUTO) 1.1 K/uL (0.8-4.8); LYMPHOCYTES % (AUTO) 16.4 % (20.5-51.5); MEAN CORPUSCULAR HEMOGLOBIN 26.7 uug (24.7-32.8); MEAN CORPUSCULAR HGB CONC 32 g/dL (32.3-35.6); MEAN CORPUSCULAR VOLUME 83.9 fL (75.5-95.3); MONOCYTES # (AUTO) 0.6 K/uL (0.1-1.30); MONOCYTES % (AUTO) 8.2 % (0.0-11.0); NEUTROPHILS % (AUTO) 73.7 % (38.5-71.5); PLATELET COUNT (AUTO) 195 K/uL (179-408); RED BLOOD CELL COUNT(AUTO) 3.32 MIL/uL (3.63-4.92); WHITE BLOOD COUNT (AUTO) 6.8 K/uL (3.8-11.8)
[2024-06-18 06:50] LABS: DIFFERENTIAL COMMENT 1
[2024-06-18 07:15] LABS: ALANINE AMINOTRANSFERASE 6 U/L (14-59); ALKALINE PHOSPHATASE 48 U/L (50-136); ASPARTATE AMINOTRANSFERASE < 5 U/L (15-37); BILIRUBIN,TOTAL 0.2 mg/dL (0.2-1.0); CALCIUM 8.7 mg/dL (8.5-10.1); CARBON DIOXIDE 23 mmol/L (21-32); CHLORIDE 111 mmol/L (98-107); CREATININE 1.4 mg/dL (0.6-1.3); GLUCOSE 167 mg/dL (74-106); MAGNESIUM 2.2 mg/dL (1.8-2.4); PHOSPHOROUS 4.3 mg/dL (2.5-4.9); POTASSIUM 4.7 mmol/L (3.5-5.1); SODIUM SERUM 143 mmol/L (136-145); TOTAL PROTEIN, SERUM 6.3 g/dL (6.4-8.2); UREA NITROGEN, BLOOD 51 mg/dL (7-18); VANCOMYCIN,RANDOM 19.7 ug/mL (20.0-30.0)
[2024-06-18 08:00] VITALS: BP 150/80; TEMP 98.2; O2SAT 97
[2024-06-18 08:09] LABS: PTH, INTACT 22 pg/mL (15-65)
[2024-06-18 08:33] LABS: BAND % (MANUAL) 32 % (0-10); NEUTROPHILS % (MANUAL) 48 % (42-75)
[2024-06-18 08:34] LABS: ANISOCYTOSIS 1+; LYMPHOCYTES % (MANUAL) 13 % (20-40); METAMYELOCYTES % 1 % (0-1); MONOCYTES % (MANUAL) 4 % (2-10); MYELOCYTES % 2 % (0-0); PLATELET ESTIMATE ADEQUATE
[2024-06-18] MEDS: AMLODIPINE 10 MG TABLET PO SCH (09:43)
[2024-06-18 11:23] VITALS: BP 138/66; TEMP 98; O2SAT 98
[2024-06-18 12:00] VITALS: O2SAT 97
[2024-06-18 16:00] VITALS: BP 138/76; TEMP 98.8; O2SAT 97
[2024-06-18 20:15] VITALS: BP 128/70; TEMP 98.1; O2SAT 98
[2024-06-19] VITALS (9 sets, daily range): BP systolic 64–145; BP diastolic 46–97; TEMP 97.5–98.2; O2SAT 90–100
[2024-06-19] MEDS: CEFEPIME HCL 2 GM in IV DEXTROSE 5% 100 ML IV SCH (02:19)
[2024-06-19 07:06] LABS: A/G RATIO 0.5 (0.7-1.7); ALBUMIN 2.2 g/dL (2.9-4.4); ALPHA-1-GLOBULIN 0.4 g/dL (0.0-0.4); ALPHA-2-GLOBULIN 1.3 g/dL (0.4-1.0); BETA GLOBULIN 0.8 g/dL (0.7-1.3); GAMMA GLOBULIN 1.6 g/dL (0.4-1.8); GLOBULIN, TOTAL 4.1 g/dL (2.2-3.9); M-SPIKE 0.7 g/dL (Not Observed)
[2024-06-19] MEDS ORDERED: AMLO10TA59 PO (13:24)
[2024-06-19] MEDS ORDERED: CEFE2FRO IV (13:24)
[2024-06-19] MEDS ORDERED: ZINC1CAP3 PO (13:24)
[2024-06-19 18:11] LABS: CALCIUM 9.8 mg/dL (8.5-10.1); CARBON DIOXIDE 25 mmol/L (21-32); CHLORIDE 106 mmol/L (98-107); CREATININE 1.2 mg/dL (0.6-1.3); GLUCOSE 192 mg/dL (74-106); POTASSIUM 4.8 mmol/L (3.5-5.1); SODIUM SERUM 141 mmol/L (136-145)
[2024-06-19 18:13] LABS: UREA NITROGEN, BLOOD 85 mg/dL (7-18)
[2024-06-20 06:33] VITALS: BP 178/74; TEMP 98.1
[2024-06-20 11:47] VITALS: BP 144/67; TEMP 97.6; O2SAT 99
[2024-06-20 16:00] VITALS: BP 111/51; TEMP 97.7; O2SAT 99
[2024-06-20 17:03] VITALS: O2SAT 98
[2024-06-20 20:05] VITALS: BP 130/64; TEMP 97.8; O2SAT 99
[2024-06-21 04:56] VITALS: O2SAT 96
[2024-06-21 05:32] VITALS: BP 133/75; TEMP 98.2; O2SAT 100
[2024-06-21 06:45] LABS: BASOPHILS % (AUTO) 0.4 % (0.0-2.0); EOSINOPHILS # (AUTO) 0.1 K/uL (0.0-0.7); EOSINOPHILS % (AUTO) 1.1 % (0.0-7.0); HEMATOCRIT 26.4 % (31.2-41.9); HEMOGLOBIN 8.7 g/dL (10.9-14.3); LYMPHOCYTES # (AUTO) 1.2 K/uL (0.8-4.8); LYMPHOCYTES % (AUTO) 14.6 % (20.5-51.5); MEAN CORPUSCULAR HEMOGLOBIN 27.3 uug (24.7-32.8); MEAN CORPUSCULAR HGB CONC 33 g/dL (32.3-35.6); MEAN CORPUSCULAR VOLUME 82.7 fL (75.5-95.3); MONOCYTES # (AUTO) 0.6 K/uL (0.1-1.30); MONOCYTES % (AUTO) 7.1 % (0.0-11.0); NEUTROPHILS # (AUTO) 6.3 K/uL (1.8-8.9); NEUTROPHILS % (AUTO) 76.8 % (38.5-71.5); PLATELET COUNT (AUTO) 238 K/uL (179-408); RED BLOOD CELL COUNT(AUTO) 3.19 MIL/uL (3.63-4.92); RED CELL DISTRIBUTION WIDTH 17.1 % (12.3-17.7); WHITE BLOOD COUNT (AUTO) 8.2 K/uL (3.8-11.8)
[2024-06-21 06:53] LABS: ALANINE AMINOTRANSFERASE 19 U/L (14-59); ALBUMIN 2.1 g/dL (3.4-5.0); ALKALINE PHOSPHATASE 51 U/L (50-136); ASPARTATE AMINOTRANSFERASE 17 U/L (15-37); BILIRUBIN,TOTAL 0.4 mg/dL (0.2-1.0); CALCIUM 8.7 mg/dL (8.5-10.1); CARBON DIOXIDE 24 mmol/L (21-32); CHLORIDE 108 mmol/L (98-107); CREATININE 1.3 mg/dL (0.6-1.3); DIFFERENTIAL COMMENT 1; GLUCOSE 143 mg/dL (74-106); MAGNESIUM 1.9 mg/dL (1.8-2.4); PHOSPHOROUS 4.2 mg/dL (2.5-4.9); SODIUM SERUM 141 mmol/L (136-145); TOTAL PROTEIN, SERUM 6.4 g/dL (6.4-8.2); UREA NITROGEN, BLOOD 56 mg/dL (7-18)
[2024-06-21 09:00] VITALS: BP 129/72; TEMP 98; O2SAT 98
[2024-06-21 13:00] VITALS: BP 138/71; TEMP 98.2; O2SAT 98
== END 2024-06-21 14:45 | DRG 871 ==
LOC: ER 18:28 → TELE3 22:52 → MEDSURG3 06-15 10:40
PROVIDERS: ADMIT Internal Medicine; ATTEND Internal Medicine
PROC: 05HC33Z Insertion of Infusion Device into Left Basilic Vein, Percutaneous Approach (ICD-10-PCS; principal; 2024-06-16)
PROC: 0DH67UZ Insertion of Feeding Device into Stomach, Via Natural or Artificial Opening (ICD-10-PCS; 2024-06-20)
PROC: 3E0G76Z Introduction of Nutritional Substance into Upper GI, Via Natural or Artificial Opening (ICD-10-PCS; 2024-06-20)
PROC: 0DP6XUZ Removal of Feeding Device from Stomach, External Approach (ICD-10-PCS; 2024-06-20)
DX: A41.9 Sepsis, unspecified organism (principal); N30.90 Cystitis, unspecified without hematuria; J69.0 Pneumonitis due to inhalation of food and vomit; N17.0 Acute kidney failure with tubular necrosis; E87.0 Hyperosmolality and hypernatremia; K94.23 Gastrostomy malfunction; E87.20 Acidosis, unspecified; F03.93 Unspecified dementia, unspecified severity, with mood disturbance; G93.40 Encephalopathy, unspecified; Z66 Do not resuscitate; E78.5 Hyperlipidemia, unspecified; E87.5 Hyperkalemia; L89.150 Pressure ulcer of sacral region, unstageable; G25.0 Essential tremor; R13.10 Dysphagia, unspecified; Z79.899 Other long term (current) drug therapy; Z79.84 Long term (current) use of oral hypoglycemic drugs; Z79.890 Hormone replacement therapy; Z74.01 Bed confinement status; N18.9 Chronic kidney disease, unspecified; R65.20 Severe sepsis without septic shock; E11.22 Type 2 diabetes mellitus with diabetic chronic kidney disease; I12.9 Hypertensive chronic kidney disease with stage 1 through stage 4 chronic kidney disease, or unspecified chronic kidney disease; E03.9 Hypothyroidism, unspecified
CPT/HCPCS: 36415; 36600; 70030-TC; 71045; 76770; 83605; 83735; 83970; 84100; 84155; 84165; 84300; 84484; 85025; 87040; 93005; A4606; A4663; A6209; A6213; C1758; G0378; J0692; J0696; J1644; J1815; J3370; J7040; J7042; J7050; J7120